=== PATIENT | female | born 2000 | race Two or more races ===

== ENCOUNTER 2023-10-11 06:47 | Day surgery (SDC) | payer OTHER ==
[~2023-10-11] VITALS: Ht 162.6 cm; Wt 59.0 kg
[2023-10-11] MEDS ORDERED: POVIDONE-IODINE 118 ML BOTT TOP ONE (18:24)
[2023-10-11] MEDS ORDERED: CEFAZOLIN SODIUM 1,000 MG VIAL ONE (18:58)
[2023-10-11] MEDS ORDERED: PROMETHAZINE HCL 50 MG/ML AMPUL IM ONE (19:15)
[2023-10-11] MEDS ORDERED: MORPHINE SULFATE 4 MG/ML VIAL IV PRN (19:15)
== END 2023-10-12 00:35 | disposition home or self-care (01) ==
LOC: CIR.AMB 06:47
PROVIDERS: ATTEND Obstetrics & Gynecology Obstetrics
DX: N93.8 Other specified abnormal uterine and vaginal bleeding (principal); N84.0 Polyp of corpus uteri